=== PATIENT | female | born 1980 | race Caucasian/White ===

== ENCOUNTER 2023-09-11 23:54 | Emergency (ER) | payer BC ==
[2023-09-12 00:05] VITALS: BP 128/87; PULSE 79; RESP 16; TEMP 98; BMI 24.8
== END 2023-09-12 01:51 | disposition home or self-care (01) ==
LOC: FER 23:54
DX: S50.11XA Contusion of right forearm, initial encounter (principal); M79.631 Pain in right forearm; R22.41 Localized swelling, mass and lump, right lower limb; W52.XXXA Crushed, pushed or stepped on by crowd or human stampede, initial encounter
CPT/HCPCS: 73090-TC-RT-FY; 73110-TC-RT-FY; 81025; 99284-25